=== PATIENT | female | born 1995 | race Two or more races ===

== ENCOUNTER 2020-08-03 19:35 | Emergency (ER) | payer MEDICAID ==
[~2020-08-03] VITALS: Ht 170.2 cm; Wt 53.0 kg
[2020-08-04 00:23] LABS: BASOPHILS % 0.6 % (0.0-2.0); EOSINOPHILS % 0.7 % (0.0-5.0); HEMATOCRIT. 37.6 % (36.0-48.0); HEMOGLOBIN. 13.3 g/dL (12.0-16.0); LYMPHOCYTES % 26.5 % (20.0-50.0); MEAN CORPUSCULAR HEMOGLOBIN 33.6 pg (28.0-32.0); MEAN PLATELET VOLUME 8.6 fl (7.4-10.4); MONOCYTES % 6.5 % (2.0-8.0); NEUTROPHILS % 65.7 % (40.0-76.0); PLATELET 144 x1000/uL (130-400); RED BLOOD CELL COUNT 3.95 mill/uL (4.2-5.4); RED CELL DISTRIBUTION WIDTH 12.3 % (11.6-14.6)
[2020-08-04 00:29] LABS: CHLORIDE 103 mEq/L (98-107)
[2020-08-04 00:35] LABS: HCG SCREEN POSITIVE
[2020-08-04 00:44] LABS: CLARITY URINE CLEAR (CLEAR); COLOR URINE YELLOW (YELLOW); KETONES URINE TRACE (NEGATIVE); LEUKOCYTE ESTERASE URINE NEGATIVE (NEGATIVE); NITRITE URINE NEGATIVE (NEGATIVE); OCCULT BLOOD URINE NEGATIVE (NEGATIVE); PH URINE 6.5 (4.5-8.0); PROTEIN URINE 1+ (NEGATIVE); SPECIFIC GRAVITY URINE 1.022 (1.005-1.030)
[2020-08-04] MEDS ORDERED: CEPH250C2 MT (04:23)
[2020-08-04 05:02] VITALS: BP 132/57
== END 2020-08-04 05:02 | disposition home or self-care (01) ==
LOC: ER 19:35
DX: O23.41 Unspecified infection of urinary tract in pregnancy, first trimester (principal); Z3A.01 Less than 8 weeks gestation of pregnancy
CPT/HCPCS: 36415; 76801; 80053; 81003; 81025; 84702; 84703; 85025; 86850; 86900; 99285